=== PATIENT | male | born 1970 | race Caucasian/White ===

== ENCOUNTER → 2018-11-12 | Outpatient (CLI) | payer BC ==
[2018-11-12 14:00] LABS: HCT 38.8 % (39.0-53.0); HGB 13.6 gm/dL (13.0-17.5); MCH 29.3 pg (25.0-35.0); MCV 83.6 fL (80.0-100.0); Mean Platelet Volume 6.3; Platelet Count 229 k/uL (150-450); RBC 4.64 m/uL (4.30-5.90); RDW 13.1 % (11.5-15.5); WBC 8.1 k/uL (3.8-10.6)
== END | disposition home or self-care (01) ==
LOC: LABPAT 13:36
PROVIDERS: ATTEND Anesthesiology
DX: Z01.812 Encounter for preprocedural laboratory examination (principal)
CPT/HCPCS: 36415; 85027

== ENCOUNTER 2018-11-14 11:29 | Day surgery (SDC) | payer BC ==
[2018-11-09 16:01] VITALS: BMI 25.8
[~2018-11-14 11:29] MED LIST: DEXAMETHASONE SOD PHOSPHATE 10 MG/ML 1 ML VIAL IV ONE; HEPARIN SODIUM,PORCINE 5,000 UNIT/ML 1 ML VIAL SQ ONE; LIDOCAINE 1% 20 ML VIAL (10MG/ML) FOR IV START INTRADERMA PRN; MIDAZOLAM 2 MG/2 ML VIAL IV PRN; fentaNYL (PF) 50 MCG/ML 2 ML AMP IV PRN
[2018-11-14] MEDS: LACTATED RINGERS 1,000 ML IV SCH ×2 (12:26→12:30)
[2018-11-14 12:50] LABS: African American GFR (CKD) >90 (>60 ml/min/1.73 sqM); Anion Gap 10 mmol/L; Blood Urea Nitrogen 20 mg/dL (9-20); Calcium 9.4 mg/dL (8.4-10.2); Carbon Dioxide 24 mmol/L (22-30); Chloride 107 mmol/L (98-107); Glucose 118 mg/dL (74-99); Non-African American GFR(CKD) 85 (>60 ml/min/1.73 sqM); Potassium 4.3 mmol/L (3.5-5.1); Sodium 141 mmol/L (137-145)
--- NOTE | 2018-11-14 13:04 | P.ANPRN ---
Procedure Note - Anesthesia - Nerve Block Performed Bilateral Transversus Abdominis Single Time Out Performed: Yes Date of Procedure: 11/14/18 Procedure Start Time: 12:45 Procedure Stop Time: 12:55 Location of Patient Procedure: PreOp Indication: Acute Post-Operative Pain Specifically requested for management of pain by DrKrzysztof: Zachary Meek Sedation Type: Sedate with meaningful contact maintained Preparation: Sterile Prep Position: Supine Catheter: None Needle Types: Pajunk Needle Gauge: 20 Ultrasound used to visualize needle placement: Yes Ultrasound used to observe medication spread: Yes Injectate: Other (see comment) (0.25% bupivacaine/0.5% lidocaine 25 mL per side) Adjunct: Epinephrine (see comment for dilution ratio) (1:200,000) Blood Aspirated: No Pain Paresthesia on Injection Noted: No Resistance on Injection: Normal Image Stored and Saved: Yes Events: Uneventful and Well Tolerated
[2018-11-14] MEDS ORDERED: ONDANSETRON 4 MG/2 ML VIAL IVP ONE (13:09)
--- NOTE | 2018-11-14 13:11 | P.GSHP ---
History of Present Illness H&P Date: 11/14/18 Chief Complaint: Bilateral inguinal hernia This a 40-year-old male who presents today for laparoscopic robotic-assisted repair of bilateral we'll hernia. Patient developed bilateral hernias. He has a history of a previous kidney transplant. Past Medical History Past Medical History: Hypertension, Renal Disease Additional Past Medical History / Comment(s): POLYCYSTIC KIDNEY DISEASE-KIDNEY TRANSPLANT SEPTEMBER 04, 2013., STATES HTN PRIOR TO TRANSPLANT BUT NOW USES LISINOPRIL TO KEEP HGB BELOW 16., FISTULA LEFT WRIST-NO IV'S , BLOOD DRAWS OR BLOODPRESSURES IN LEFT ARM. History of Any Multi-Drug Resistant Organisms: None Reported Past Surgical History: Hernia Repair Additional Past Surgical History / Comment(s): KIDNEY TRANSPLANT , UMBILICAL HERNIA (2007), LEFT WRIST FISTULA INSERTED (2011) Past Anesthesia/Blood Transfusion Reactions: Postoperative Nausea & Vomiting (PONV) Past Psychological History: No Psychological Hx Reported Smoking Status: Never smoker Past Alcohol Use History: Rare Past Drug Use History: None Reported - Past Family History Mother Family Medical History: Cancer Additional Family Medical History / Comment(s): SQUAMOUS CELL SKIN CANCER Father Family Medical History: Cancer Additional Family Medical History / Comment(s): SKIN CANCER Medications and Allergies Home Medications Medication Instructions Recorded Confirmed Type Aspirin [Adult Low Dose Aspirin EC] 81 mg PO DAILY 11/09/18 11/09/18 History Lisinopril [Zestril] 5 mg PO DAILY 11/09/18 11/09/18 History Mycophenolate Mofetil [Cellcept] 1,000 mg PO BID@0900,209911/09/18 11/09/18 History Tacrolimus [Prograf] 1 mg PO DAILY@209911/09/18 11/14/18 History Tacrolimus [Prograf] 2 mg PO DAILY@0911/09/18 11/09/18 History Allergies Allergy/AdvReac Type Severity Reaction Status Date / Time No Known Allergies Allergy Verified 11/09/18 15:45 Surgical - Exam Vital Signs Temp Pulse Resp Pulse Ox 97.6 F 84 18 97 11/14/18 11:58 11/14/18 11:58 11/14/18 11:58 11/14/18 11:58 - General well developed, well nourished, no distress - Eyes PERRL - ENT normal pinna - Neck no masses - Respiratory normal expansion - Cardiovascular Rhythm: regular - Abdomen Abdomen: soft, non tender Results - Labs 11/14/18 12:15 Abnormal Lab Results - Last 24 Hours (Table) 11/14/18 Range/Units 12:15 Glucose 118 H (74-99) mg/dL Diabetes panel 11/14/18 Range/Units 12:15 Sodium 141 (137-145) mmol/L Potassium 4.3 (3.5-5.1) mmol/L Chloride 107 (98-107) mmol/L Carbon Dioxide 24 (22-30) mmol/L BUN 20 (9-20) mg/dL Creatinine 1.04 (0.66-1.25) mg/dL Glucose 118 H (74-99) mg/dL Calcium 9.4 (8.4-10.2) mg/dL Calcium panel 11/14/18 Range/Units 12:15 Calcium 9.4 (8.4-10.2) mg/dL Pituitary panel 11/14/18 Range/Units 12:15 Sodium 141 (137-145) mmol/L Potassium 4.3 (3.5-5.1) mmol/L Chloride 107 (98-107) mmol/L Carbon Dioxide 24 (22-30) mmol/L BUN 20 (9-20) mg/dL Creatinine 1.04 (0.66-1.25) mg/dL Glucose 118 H (74-99) mg/dL Calcium 9.4 (8.4-10.2) mg/dL Adrenal panel 11/14/18 Range/Units 12:15 Sodium 141 (137-145) mmol/L Potassium 4.3 (3.5-5.1) mmol/L Chloride 107 (98-107) mmol/L Carbon Dioxide 24 (22-30) mmol/L BUN 20 (9-20) mg/dL Creatinine 1.04 (0.66-1.25) mg/dL Glucose 118 H (74-99) mg/dL Calcium 9.4 (8.4-10.2) mg/dL Assessment and Plan Assessment: Bilateral inguinal hernia. We'll perform laparoscopic robotic-assisted repair.
[2018-11-14] MEDS ORDERED: MIDAZOLAM 2 MG/2 ML VIAL ONE (13:31)
[2018-11-14] MEDS ORDERED: SUCCINYLCHOLINE CHLORIDE 100 MG/5 ML SYR IV ONE (13:31)
[2018-11-14] MEDS ORDERED: GLYCOPYRROLATE 0.2 MG/ML 2 ML VIAL ONE (13:31)
[2018-11-14] MEDS ORDERED: KETAMINE 10 MG/ML 20 ML VIAL ONE (13:31)
[2018-11-14] MEDS ORDERED: LIDOCAINE 1% INJ 10MG/ML (20 ML MDV) ONE (13:31)
[2018-11-14] MEDS ORDERED: PROPOFOL 10 MG/ML 20 ML VIAL IV ONE (13:31)
[2018-11-14] MEDS ORDERED: NEOSTIGMINE 1 MG/ML 10 ML VIAL ONE (13:31)
[2018-11-14] MEDS ORDERED: ROCURONIUM BROMIDE 10 MG/ML 10 ML VIAL IV ONE (13:31)
[2018-11-14] MEDS ORDERED: fentaNYL (PF) 50 MCG/ML 2 ML AMP ONE (13:31)
[2018-11-14] MEDS ORDERED: BUPIVACAINE (PF) 0.5% 30 ML VIAL ONE (13:31)
[2018-11-14] MEDS ORDERED: LIDOCAINE 2%-EPI 1:100,000 20 ML VIAL ONE (13:31)
[2018-11-14] MEDS ORDERED: BUPIVACAINE (PF) 0.25% 30 ML VIAL SQ ONE (13:55)
--- NOTE | 2018-11-14 14:47 | P.OP ---
Date of Procedure: 11/14/18 Preoperative Diagnosis: Bilateral inguinal hernia Postoperative Diagnosis: Right inguinal hernia Procedure(s) Performed: Laparoscopic robotic system repair of right inguinal hernia Anesthesia: NATAN Surgeon: Zachary Meek Pathology: none sent Condition: stable Disposition: PACU Description of Procedure: The patient was placed on the operating table in the supine position. The patient received general anesthesia. The patient's abdomen was prepped and draped in usual sterile fashion. The skin was anesthetized 1% local Xylocaine at the incision sites. Using an 11 blade a skin incision was made at the umbilicus. The fascia was grasped with a Jennifer and then the peritoneal cavity was entered with the Veress needle. Position of the Veress needle was confirmed with a positive drop test. After adequate insufflation a 5 mm trocar was placed into the peritoneal cavity. The Laparoscope was placed the peritoneal cavity. And a robotic 8 mm trocar was placed in the right lateral position and then another 8 mm robotic trochars placed in the left lateral position. The original 5 mm trocar was exchanged for a 12 mm trocar. The patient was placed in reverse Trendelenburg and then the patient was docked to the robot. Next the peritoneum over top of the hernia was incised and then using blunt and sharp dissection and electrocautery the hernia sac was dissected free from the floor of the inguinal canal. The hernia sac was completely reduced into the peritoneal cavity. And then using the Pro bath steward mesh the hernia was repaired. The peritoneum was then sutured with 2-0V lock suture. Next, the left inguinal area was examined. The patient's [place] polycystic kidney extended to the left pelvis. This was photographed. The patient's transplanted kidney appeared to be below the peritoneum of the left inguinal area. At this point decided to not do any dissection in the area. It was felt that a dissection may disrupt the transplant kidney. The patient was then undocked the robot. The needle was withdrawn from the peritoneal cavity. The umbilical trocar site was closed with 0 Ethibond suture. The skin was closed interrupted 3-0 Monocryl suture. Dermabond dressing was applied. Patient was sent to recovery in stable condition.
[2018-11-14 14:53] VITALS: TEMP 96.9
[2018-11-14 15:03] VITALS: RESP 16
[2018-11-14 16:38] VITALS: BP 121/77; PULSE 77
== END 2018-11-14 17:10 | disposition home or self-care (01) ==
LOC: OR 11:29
PROVIDERS: ATTEND Surgery
DX: K40.90 Unilateral inguinal hernia, without obstruction or gangrene, not specified as recurrent (principal); Z79.82 Long term (current) use of aspirin; Z94.0 Kidney transplant status; I10 Essential (primary) hypertension; Q61.3 Polycystic kidney, unspecified; Z80.8 Family history of malignant neoplasm of other organs or systems; Z79.899 Other long term (current) drug therapy; Z53.09 Procedure and treatment not carried out because of other contraindication
CPT/HCPCS: 64488; 80048; 49650; C1781; J2250; J1644; J1100; J2710; J0690; J2405; J2001; J3010; J0330; J2704

== ENCOUNTER 2023-12-25 11:49 | Emergency (ER) | payer BC, OTHER ==
--- NOTE | 2023-12-25 12:47 | ED ---
Abdominal Pain HPI - General Chief Complaint: Abdominal Pain Stated Complaint: [facility]-abd injury Time Seen by Provider: 12/25/23 12:05 Source: patient, RN notes reviewed Mode of arrival: ambulatory Limitations: no limitations - History of Present Illness Initial Comments: This is a 53-year-old male with a history of kidney transplant presenting to the emergency department with a work-related accident. Patient states that he was moving a heavy load of equipment when part of the handles hit him in the abdomen. Patient denies other injuries at time of the event. Patient currently has mild pain to palpation over the umbilicus. He denies nausea, vomiting, diarrhea or constipation. No other acute complaints at this time. - Related Data Home Medications Medication Instructions Recorded Confirmed Aspirin [Adult Low Dose Aspirin EC] 81 mg PO DAILY 11/09/18 11/09/18 Tacrolimus [Prograf] 1 mg PO DAILY@2100 11/09/18 11/14/18 Tacrolimus [Prograf] 2 mg PO DAILY@0900 11/09/18 11/09/18 lisinopriL [Zestril] 5 mg PO DAILY 11/09/18 11/09/18 mycophenolate mofetiL [Cellcept] 1,000 mg PO BID@0900,2100 11/09/18 11/09/18 Previous Rx's Medication Instructions Recorded Docusate [Colace] 100 mg PO BID #20 capsule 11/14/18 HYDROcodone/APAP 5-325MG [[place] 1 tab PO Q6HR PRN #10 tab 11/14/18 5-325] Allergies Allergy/AdvReac Type Severity Reaction Status Date / Time No Known Allergies Allergy Verified 11/09/18 15:45 Review of Systems ROS Statement: Those systems with pertinent positive or pertinent negative responses have been documented in the HPI. ROS Other: All systems not noted in ROS Statement are negative. Past Medical History Past Medical History: Hypertension, Renal Disease Additional Past Medical History / Comment(s): POLYCYSTIC KIDNEY DISEASE-KIDNEY TRANSPLANT SEPTEMBER 04, 2013., STATES HTN PRIOR TO TRANSPLANT BUT NOW USES LISINOPRIL TO KEEP HGB BELOW 16., FISTULA LEFT WRIST-NO IV'S , BLOOD DRAWS OR BLOODPRESSURES IN LEFT ARM. History of Any Multi-Drug Resistant Organisms: None Reported Past Surgical History: Hernia Repair Additional Past Surgical History / Comment(s): KIDNEY TRANSPLANT , UMBILICAL HERNIA (2008), LEFT WRIST FISTULA INSERTED (2012) Past Anesthesia/Blood Transfusion Reactions: Postoperative Nausea & Vomiting (PONV) Past Psychological History: No Psychological Hx Reported Past Alcohol Use History: Rare Past Drug Use History: None Reported - Past Family History Mother Family Medical History: Cancer Additional Family Medical History / Comment(s): SQUAMOUS CELL SKIN CANCER Father Family Medical History: Cancer Additional Family Medical History / Comment(s): SKIN CANCER General Exam Limitations: no limitations General appearance: alert, in no apparent distress Eye exam: Present: normal appearance, PERRL, EOMI. Absent: scleral icterus, conjunctival injection, periorbital swelling Neck exam: Present: normal inspection. Absent: tenderness, meningismus, lymphadenopathy Respiratory exam: Present: normal lung sounds bilaterally. Absent: respiratory distress, wheezes, rales, rhonchi, stridor Cardiovascular Exam: Present: regular rate, normal rhythm, normal heart sounds. Absent: systolic murmur, diastolic murmur, rubs, gallop, clicks GI/Abdominal exam: Present: soft, tenderness (umbilicus), normal bowel sounds, other (ecchymosis over the umbilicus). Absent: distended, guarding, rebound, rigid Extremities exam: Present: normal inspection, full ROM, normal capillary refill. Absent: tenderness, pedal edema, joint swelling, calf tenderness Back exam: Present: normal inspection Neurological exam: Present: alert, oriented X3, CN II-XII intact Skin exam: Present: warm, dry, intact, normal color. Absent: rash Course Vital Signs 12/25/23 12/25/23 11:56 14:06 Temperature 97.7 F 98 F Pulse Rate 104 H 88 Respiratory 20 18 Rate Blood Pressure 128/68 146/78 O2 Sat by Pulse 97 96 Oximetry Medical Decision Making - Medical Decision Making Was pt. sent in by a medical professional or institution (, PA, ASSEMBLER FINAL, urgent care, hospital, or fdc...) When possible be specific @ -No Did you speak to anyone other than the patient for history (EMS, parent, family, police, friend...)? What history was obtained from this source @ -No Did you review nursing and triage notes (agree or disagree)? Why? @ -I reviewed and agree with nursing and triage notes Were old charts reviewed (outside hosp., previous admission, EMS record, old EKG, old radiological studies, urgent care reports/EKG's, fdc records)? Report findings @ -No old charts were reviewed Differential Diagnosis (chest pain, altered mental status, abdominal pain women, abdominal pain men, vaginal bleeding, weakness, fever, dyspnea, syncope, headache, dizziness, GI bleed, back pain, seizure, CVA, palpatations, mental health, musculoskeletal)? @ -Differential Abdominal Pain Men: Appendicitis, cholecystitis, diverticulosis, ischemic bowel, pancreatitis, hepatitis, UTI, gastroenteritis, AAA, incarcerated hernia, bowel obstruction, constipation, inflammatory bowel, hepatitis, peptic ulcer disease, splenic infarction, perforated viscus, testicular torsion, this is not meant to be an all-inclusive list EKG interpreted by me (3pts min.). @ -None X-rays interpreted by me (1pt min.). @ -None done CT interpreted by me (1pt min.). @ -CT of the abdomen and pelvis without contrast reveals a left periumbilical soft tissue opacity measuring up to 1.6 cm, probably representing small hematoma. U/S interpreted by me (1pt. min.). @ -None done What testing was considered but not performed or refused? (CT, X-rays, U/S, labs)? Why? @ -None What meds were considered but not given or refused? Why? @ -None Did you discuss the management of the patient with other professionals (professionals i.e. , PA, ASSEMBLER FINAL, lab, RT, psych nurse, social work supervisor, public bath attendant, teacher, seaman officer, field case manager)? Give summary @ -No Was smoking cessation discussed for >3mins.? @ -No Was critical care preformed (if so, how long)? @ -No Were there social determinants of health that impacted care today? How? (Homelessness, low income, unemployed, alcoholism, drug addiction, transportation, low edu. Level, literacy, decrease access to med. care, correction, rehab)? @ -No Was there de-escalation of care discussed even if they declined (Discuss DNR or withdrawal of care, Hospice)? DNR status @ -No What co-morbidities impacted this encounter? (DM, HTN, Smoking, COPD, CAD, Cancer, CVA, ARF, Chemo, Hep., AIDS, mental health diagnosis, sleep apnea, morbid obesity)? @ -None Was patient admitted / discharged? Hospital course, mention meds given and rout e, prescriptions, significant lab abnormalities, going to OR and other pertinent info. @ -Discharge. 53 male with abdominal pain. Patient is noted to have mild abdominal tenderness palpation around the umbilicus with noted ecchymosis. Patient was offered pain medication however is declined. CT remarkable for hematoma or nerve concern. Patient provided with work note. Recommended to continue to rest, ice, and use Tylenol as needed. Case discussed with Dr. Guzmán Undiagnosed new problem with uncertain prognosis? @ -No Drug Therapy requiring intensive monitoring for toxicity (Heparin, Nitro, Insulin, Cardizem)? @ -No Were any procedures done? @ -No Diagnosis/symptom? @ -abdominal hematoma, abdominal injury Acute, or Chronic, or Acute on Chronic? @ -Acute Uncomplicated (without systemic symptoms) or Complicated (systemic symptoms)? @ -Uncomplicated Side effects of treatment? @ -No Exacerbation, Progression, or Severe Exacerbation? @ -No Poses a threat to life or bodily function? How? (Chest pain, USA, MS, pneumonia, PE, COPD, DKA, ARF, appy, cholecystitis, CVA, Diverticulitis, Homicidal, Suicidal, threat to staff... and all critical care pts) @ -No Disposition Clinical Impression: Abdominal hematoma Disposition: HOME SELF-CARE Condition: Good Instructions (If sedation given, give patient instructions): Hematoma (ED) Additional Instructions: Please return to the Emergency Department if symptoms worsen or any other concerns. Is patient prescribed a controlled substance at d/c from ED?: No Referrals: Scotty Petty MD [Primary Care Provider] - 1-2 days Time of Disposition: 13:46
--- NOTE | 2023-12-25 13:24 | CT ---
EXAMINATION TYPE: CT abdomen pelvis wo con CT DLP: 529.2 mGycm, Automated exposure control for dose reduction was used. DATE OF EXAM: 12/25/2023 1:10 PM COMPARISON: None CLINICAL INDICATION:Male, 53 years old with history of injury, umbilical pain; Injury, Umbilical pain TECHNIQUE: Standard CT of the abdomen and pelvis without IV or oral contrast. Lack of IV or oral co ntrast limits evaluation of solid and hollow organ viscera. Coronal and sagittal reformats were perfo rmed. FINDINGS: LOWER CHEST: Visualized lung bases are clear. Trace pericardial effusion. ABDOMEN LIVER: Multiple hypodense lesion is demonstrated within the liver with largest in the central right h epatic lobe measuring up to 2.7 cm. These are most consistent with cysts. GALLBLADDER AND BILE DUCTS: Mildly prominent gallbladder without surrounding wall thickenings. The ga llbladder measures 4.2 x 11.2 cm in size. No biliary ductal dilatation. PANCREAS: Unremarkable. SPLEEN: Unremarkable. ADRENAL GLANDS: Unremarkable. KIDNEYS AND URETERS: No evidence of hydronephrosis. Enlarged bilateral kidneys with innumerable hypod ense lesions throughout. These are most consistent with cysts. The left kidney is larger than the rig ht. There are some nonobstructive calcifications within both kidneys which may be vascular versus verito al nonobstructive calculi. Largest within the left kidney measures up to 1.3 cm. These kidneys demons trate some surrounding mass effect with anterior displacement of the descending colon anteriorly. Lef t pelvic renal transplant kidney identified. Several hyperdense bilateral renal cortical cysts identi fied likely proteinaceous/hemorrhagic in nature. PELVIS BLADDER: Unremarkable REPRODUCTIVE: Prostate is enlarged in size measuring 5.0 cm in transverse dimension. ABDOMEN & PELVIS STOMACH AND BOWEL: Stomach and duodenum are unremarkable. Sigmoid diverticulosis without evidence for acute diverticulitis. The appendix is within normal limits. No evidence of bowel obstruction. PERITONEUM: No evidence of pneumoperitoneum or free fluid. VASCULATURE: No evidence of aortic aneurysm. MUSCULOSKELETAL: No acute osseous abnormalities. Grade 1 anterolisthesis of L5 on S1 with bilateral p ars defects. LYMPH NODES: No gross evidence for lymphadenopathy. SOFT TISSUE/ABDOMINAL WALL: Left umbilical focal opacity measuring 1.6 x 1.1 cm (series 21, image 53) . IMPRESSION: 1. Left periumbilical soft tissue opacity measuring up to 1.6 cm probably representing a small hemat dejah in the setting of prior trauma. 2. Findings of autosomal dominant polycystic kidney disease with left lower quadrant transplant kidne y and hepatic cysts. Bilateral hyperdense renal cortical lesions likely proteinaceous/hemorrhagic cys ts. [facility], , 12/25/2023 1:21 PM
[2023-12-25 14:07] VITALS: BP 146/78; PULSE 88; RESP 18; TEMP 98
== END 2023-12-25 14:07 | disposition home or self-care (01) ==
LOC: EC 11:49
DX: S30.1XXA Contusion of abdominal wall, initial encounter (principal); Z94.0 Kidney transplant status; W22.8XXA Striking against or struck by other objects, initial encounter; Y99.0 Civilian activity done for income or pay
CPT/HCPCS: 74176; 99284